=== PATIENT | male | born 1990 | race Caucasian/White ===

== ENCOUNTER 2020-03-09 12:14 | Emergency (ER) | payer MEDICAID ==
[~2020-03-09] VITALS: Ht 172.7 cm; Wt 90.7 kg
[2020-03-09 12:20] VITALS: BP_SYST 121
--- NOTE | 2020-03-09 12:20 | NUR ---
Pt came to ER for OK to book, c/o back pain no injuries at this time. Law enforcement officers given ok to book paperwork
--- NOTE | 2020-03-09 12:20 | NUR ---
Patient to ER bed H1 to gown for evaluation. Side rails up.
--- NOTE | 2020-03-09 12:25 | NUR ---
ER at bedside examining patient.
[2020-03-09 12:28] VITALS: BP_SYST 121
--- NOTE | 2020-03-09 12:28 | NUR ---
Patient given written and verbal discharge instructions and verbalizes understanding. ER MD discussed with patient the results and treatment provided. Patient in stable condition. ID arm band removed. Patient educated on pain management and to follow up with PMD. Pain Scale 3/10. Opportunity for questions provided and answered. Medication side effect fact sheet provided.
== END 2020-03-09 12:28 ==
LOC: SED 12:14
DX: Z13.89 Encounter for screening for other disorder (principal); F11.20 Opioid dependence, uncomplicated
CPT/HCPCS: 99283